=== PATIENT | male | born 1975 | race Two or more races ===

== ENCOUNTER 2022-06-17 18:12 | Inpatient (IN) | payer SELFPAY ==
[2022-06-17] MEDS ORDERED: Sodium Chloride 0.9% 10 ML Syringe FLUSH PRN (18:49)
[2022-06-17] MEDS ORDERED: Sodium Chloride 0.9% 1,000 ML IV STA (20:21)
[2022-06-17] MEDS ORDERED: Piperacillin/Tazobactam 4.5 GM in Sodium Chloride 0.9% 100 ML IV ONE (20:29)
[2022-06-17] MEDS ORDERED: Insulin Regular in 0.9 % NACL 100 ML IV SCH ×3 (20:30→22:30)
[2022-06-17 20:34] LABS: HEMOGLOBIN A1C 12.1 %
[2022-06-17] MEDS ORDERED: Sodium Chloride 0.9% 1,000 ML IV SCH (22:30)
[2022-06-18] MEDS ORDERED: Sodium Chloride 0.45% 1,000 ML IV SCH (00:15)
[2022-06-18] MEDS ORDERED: NS + KCl 20mEq/L 1,000 ML IV SCH (00:15)
[2022-06-18] MEDS ORDERED: Dextrose 5%-0.45% NaCl 1,000 ML IV SCH (00:15)
[2022-06-18] MEDS ORDERED: Insulin Glargine,Human Rec. Analog 100 Units/ML 3 ML Pen SUBCUT STA (03:32)
[2022-06-18] MEDS: Piperacillin/Tazobactam 4.5 GM in Sodium Chloride 0.9% 100 ML IV SCH ×3 (06:50→22:07)
[2022-06-18] MEDS: Acetaminophen 325 MG Tab PO PRN ×2 (08:41→15:24)
[2022-06-18] MEDS: Aspirin 81 MG Tab.Chew PO SCH (08:42)
[2022-06-18] MEDS: Insulin Glargine,Human Rec. Analog 100 Units/ML 3 ML Pen SUBCUT SCH (08:42)
[2022-06-18] MEDS: Insulin Lispro 100 Unit/ML 3 ML KwikPen SUBCUT SCH ×3 (11:11→22:06)
[2022-06-18] MEDS ORDERED: Benzocaine/Cetylpyridinium/Menthol Lozenge MUCMEM PRN (15:03)
[2022-06-18] MEDS: oxyCODONE 5 MG Tab PO PRN ×2 (15:55→21:55)
[2022-06-19] MEDS: oxyCODONE 5 MG Tab PO PRN ×2 (06:35→20:36)
[2022-06-19] MEDS: Piperacillin/Tazobactam 4.5 GM in Sodium Chloride 0.9% 100 ML IV SCH ×3 (06:36→22:30)
[2022-06-19] MEDS: Insulin Glargine,Human Rec. Analog 100 Units/ML 3 ML Pen SUBCUT SCH (09:39)
[2022-06-19] MEDS: Aspirin 81 MG Tab.Chew PO SCH (09:40)
[2022-06-19] MEDS: Insulin Lispro 100 Unit/ML 3 ML KwikPen SUBCUT SCH ×4 (11:00→20:44)
[2022-06-19] MEDS: Enoxaparin 40 MG/0.4 ML Syringe SUBCUT SCH (11:56)
[2022-06-20] MEDS: oxyCODONE 5 MG Tab PO PRN (06:33)
[2022-06-20] MEDS: Piperacillin/Tazobactam 4.5 GM in Sodium Chloride 0.9% 100 ML IV SCH (06:34)
[2022-06-20] MEDS: Enoxaparin 40 MG/0.4 ML Syringe SUBCUT SCH (08:56)
[2022-06-20] MEDS: Aspirin 81 MG Tab.Chew PO SCH (08:56)
[2022-06-20] MEDS: Insulin Lispro 100 Unit/ML 3 ML KwikPen SUBCUT SCH ×2 (08:57→11:59)
[2022-06-20] MEDS: Insulin Glargine,Human Rec. Analog 100 Units/ML 3 ML Pen SUBCUT SCH (08:58)
== END 2022-06-20 17:48 | disposition home or self-care (01) | DRG 602 ==
LOC: JD.ED 18:12 → JD.ICU 21:12 → JD.MS 06-18 16:43
PROVIDERS: ADMIT Pediatrics; ATTEND Internal Medicine
DX: L03.116 Cellulitis of left lower limb (principal); E11.00 Type 2 diabetes mellitus with hyperosmolarity without nonketotic hyperglycemic-hyperosmolar coma (NKHHC); S81.802A Unspecified open wound, left lower leg, initial encounter; Z86.16 Personal history of COVID-19; N18.31 Chronic kidney disease, stage 3a; F17.210 Nicotine dependence, cigarettes, uncomplicated; I25.10 Atherosclerotic heart disease of native coronary artery without angina pectoris; X58.XXXA Exposure to other specified factors, initial encounter
CPT/HCPCS: 36415; 73562-26-LT; 73562-LT; 80053; 81001; 82009; 82947; 83036; 83605; 83735; 83930; 84100; 85025; 86140; 87040; 93005; 96361; 96365; 99284-25; A9270-GY; J1650; J1815; J1815-GY; J2543; J3480; J3490; J7030; J7042